=== PATIENT | male | born 1960 | race African-American/Black ===

== ENCOUNTER 2016-04-03 16:08 | Emergency (ER) | payer MEDICARE, OTHER ==
[2016-04-03] MEDS ORDERED: KETOROLAC 60 MG/2 ML VIAL IM ONE (17:08)
[2016-04-03] MEDS ORDERED: DILAUDID 1 MG/ML AMP ONE (17:08)
== END 2016-04-03 19:15 | disposition home or self-care (01) ==
LOC: ER 16:08
DX: M51.36 Other intervertebral disc degeneration, lumbar region (principal); M51.34 Other intervertebral disc degeneration, thoracic region; W01.0XXA Fall on same level from slipping, tripping and stumbling without subsequent striking against object, initial encounter; R93.7 Abnormal findings on diagnostic imaging of other parts of musculoskeletal system; I10 Essential (primary) hypertension; E10.9 Type 1 diabetes mellitus without complications; Z79.4 Long term (current) use of insulin; Z79.82 Long term (current) use of aspirin; Z87.891 Personal history of nicotine dependence
CPT/HCPCS: 72050; 72072; 72100; 96372; 99285; J1170